=== PATIENT | male | born 1950 | race Hispanic/Latino ===

== ENCOUNTER 2018-08-08 07:27 | Inpatient (IN) | payer OTHER | END 2018-08-12 15:37 | LOC: DAHIP 07:27 → 4BH 14:36 → 4AH 17:34 | PROC: 0SRD0JZ Replacement of Left Knee Joint with Synthetic Substitute, Open Approach (ICD-10-PCS; principal; 2018-08-08 11:25) | DX: M17.12 Unilateral primary osteoarthritis, left knee (principal) ==

== ENCOUNTER → 2020-02-20 | Outpatient (CLI) | payer OTHER ==
[~2020-02-20] MED LIST: ASCO500T10 PO; CICL34.6 TP; CICL34.62 TP; FERR324T PO; GABA-531 PO; GLIP5TAB11 PO; LISI-617 PO; METF-446 PO; OMEP20CA12 PO; RANI150T7 PO; SIMV-43 PO; VENL-53 PO
--- NOTE | 2020-02-20 10:30 | NUR ---
MBSS COMPLETED. -S/S OF ASPIRATION. RECOMMEND REGULAR TEXTURE, THIN LIQUIDS; PILLS WITH LIQUIDS Addendum: 02/20/20 at 1646 by LAMAR MIDDLETON, [facility] Amended: Links added.
== END | disposition home or self-care (01) ==
LOC: RAH 10:29
PROVIDERS: ATTEND Family Medicine
DX: R13.10 Dysphagia, unspecified (principal)
CPT/HCPCS: 74230; 92611

== ENCOUNTER 2023-03-19 13:24 | Emergency (ER) | payer OTHER ==
[~2023-03-19] VITALS: Ht 177.8 cm; Wt 83.9 kg
[~2023-03-19 13:24] MED LIST changes: -GLIP5TAB11 PO; +GLIP5TAB15 PO; -LISI-617 PO; +LISI5TAB21 PO
[2023-03-19] MEDS ORDERED: METOCLOPRAMIDE 10 MG/2 ML VIAL IVP ONE (15:00)
[2023-03-19] MEDS ORDERED: MORPHINE 4 MG SYG IVP ONE (15:00)
[2023-03-19] MEDS ORDERED: LACTATED RINGERS 1000ML 1,000 ML IV ONE (15:00)
[2023-03-19 15:27] LABS: BASOPHILS # (AUTO) 0.01 K/uL (0.00-0.20); BASOPHILS % (AUTO) 0.2 % (0.0-5.0); HEMATOCRIT 41.4 % (42-54); IMMATURE GRANULOCYTE ABSOLUTE 0.02 K/uL (0-1); LYMPHOCYTES # (AUTO) 0.9 K/uL (1.0-4.8); LYMPHOCYTES % (AUTO) 16.9 % (21.0-51.0); MEAN CORPUSCULAR HEMOGLOBIN 30.7 pg (27.0-33.0); MEAN CORPUSCULAR HGB CONC 35.3 g/dL (32.0-36.0); MEAN CORPUSCULAR VOLUME 87.2 fL (79-99); MONOCYTES # (AUTO) 0.2 K/uL (0.1-1.0); MONOCYTES % (AUTO) 3.4 % (3.0-13.0); NEUTROPHILS # (AUTO) 4.2 K/uL (1.8-7.7); NEUTROPHILS % (AUTO) 79.1 % (40.0-77.0); PLATELET COUNT (AUTO) 187 K/uL (130-400); RED BLOOD CELL COUNT(AUTO) 4.75 MIL/uL (4.50-6.20); RED CELL DISTRIBUTION WIDTH 14.4 % (11.0-15.5); WHITE BLOOD COUNT (AUTO) 5.3 K/uL (4.8-10.8)
[2023-03-19 15:36] LABS: CREATININE 0.8 mg/dL (0.5-1.5); POTASSIUM 4.7 mmol/L (3.5-5.1)
[2023-03-19 15:40] LABS: ALBUMIN 3.7 g/dL (3.5-5.0); TOTAL PROTEIN, SERUM 6.5 g/dL (6.0-8.3)
[2023-03-19] MEDS ORDERED: IOHEXOL-350 75 ML VIAL IV ONE (15:58)
[2023-03-19 16:49] LABS: APPEARANCE,URINE CLEAR (CLEAR); BILIRUBIN,URINE NEGATIVE (NEGATIVE); COLOR,URINE LIGHT-YELLOW (YELLOW); GLUCOSE, URINE (UA) NEGATIVE (NEGATIVE); KETONES,URINE NEGATIVE (NEGATIVE); LEUKOCYTE ESTERASE ,URINE NEGATIVE Leu/uL (NEGATIVE); NITRATE,URINE NEGATIVE (NEGATIVE); OCCULT BLOOD,URINE NEGATIVE (NEGATIVE); PROTEIN,URINE NEGATIVE (NEGATIVE); UROBILINOGEN,URINE 0.2 mg/dL (0.2-1.0)
[2023-03-19 16:50] LABS: ADD UA MICROSCOPIC YES
[2023-03-19 16:52] LABS: RBC,URINE 0-1 /HPF (0-1); WBC,URINE 0-1 /HPF (0-1)
[2023-03-19] MEDS ORDERED: POLY17PO4 PO (17:08)
[2023-03-19 18:29] VITALS: BP 139/74; PULSE 72; RESP 16; O2SAT 99
== END 2023-03-19 18:43 | disposition home or self-care (01) ==
LOC: EDH 13:24
DX: K57.30 Diverticulosis of large intestine without perforation or abscess without bleeding (principal); K59.00 Constipation, unspecified; E11.9 Type 2 diabetes mellitus without complications; E78.00 Pure hypercholesterolemia, unspecified; I10 Essential (primary) hypertension; Z79.84 Long term (current) use of oral hypoglycemic drugs; Z79.899 Other long term (current) drug therapy
CPT/HCPCS: 99285; 74178; 96374; 71045; 96361; 96375; 82550; 84484; 80053; 83690; 85025; 81001; 36415; 93005; J7120; J2270; J2765; Q9967

== ENCOUNTER → 2023-03-22 | Outpatient (CLI) | payer OTHER ==
[~2023-03-22] MED LIST changes: +POLY17PO4 PO
== END | disposition home or self-care (01) ==
LOC: RAH 14:22
PROVIDERS: ATTEND Internal Medicine
DX: K59.04 Chronic idiopathic constipation (principal)
CPT/HCPCS: 74018

== ENCOUNTER 2024-01-18 17:18 | Observation (INO) | payer OTHER ==
[~2024-01-18] VITALS: Ht 175.3 cm; Wt 90.4 kg
[2024-01-18 18:23] LABS: BASOPHILS # (AUTO) 0.01 K/uL (0.00-0.20); BASOPHILS % (AUTO) 0.2 % (0.0-5.0); EOSINOPHILS # (AUTO) 0.01 K/uL (0.00-0.70); EOSINOPHILS % (AUTO) 0.2 % (0.0-8.0); HEMATOCRIT 35.8 % (42-54); IMMATURE GRANULOCYTE ABSOLUTE 0.04 K/uL (0-1); LYMPHOCYTES # (AUTO) 0.5 K/uL (1.0-4.8); LYMPHOCYTES % (AUTO) 8.7 % (21.0-51.0); MEAN CORPUSCULAR HEMOGLOBIN 34.5 pg (27.0-33.0); MEAN CORPUSCULAR HGB CONC 36.3 g/dL (32.0-36.0); MONOCYTES # (AUTO) 0.3 K/uL (0.1-1.0); MONOCYTES % (AUTO) 4.7 % (3.0-13.0); NEUTROPHILS # (AUTO) 5.3 K/uL (1.8-7.7); NEUTROPHILS % (AUTO) 85.6 % (40.0-77.0); PLATELET COUNT (AUTO) 176 K/uL (130-400); RED BLOOD CELL COUNT(AUTO) 3.77 MIL/uL (4.50-6.20); WHITE BLOOD COUNT (AUTO) 6.2 K/uL (4.8-10.8)
[2024-01-18] MEDS: 0.9%NACL 1000ML 1,000 ML IV ONE (18:33)
[2024-01-18 18:38] LABS: CREATININE 0.8 mg/dL (0.5-1.3); POTASSIUM 4.1 mmol/L (3.5-5.1)
[2024-01-18 18:43] LABS: ALBUMIN 3.6 g/dL (3.5-5.0); BILIRUBIN,TOTAL 0.8 mg/dL (0.2-1.0); TOTAL PROTEIN, SERUM 6.4 g/dL (6.0-8.3)
[2024-01-18 19:51] LABS: APPEARANCE,URINE CLEAR (CLEAR); BILIRUBIN,URINE NEGATIVE (NEGATIVE); COLOR,URINE LIGHT-YELLOW (YELLOW); GLUCOSE, URINE (UA) NEGATIVE (NEGATIVE); KETONES,URINE NEGATIVE (NEGATIVE); LEUKOCYTE ESTERASE ,URINE 25 Leu/uL (NEGATIVE); NITRATE,URINE NEGATIVE (NEGATIVE); OCCULT BLOOD,URINE NEGATIVE (NEGATIVE); PH,URINE 6.5 (5.0-8.0); PROTEIN,URINE NEGATIVE (NEGATIVE); UROBILINOGEN,URINE 0.2 mg/dL (0.2-1.0)
[2024-01-18 19:54] LABS: SODIUM,URINE RANDOM 30 mmol/l (40-220)
[2024-01-18 19:55] LABS: ADD UA MICROSCOPIC YES
[2024-01-18 19:57] LABS: RBC,URINE 0-1 /HPF (0-1)
[2024-01-18] MEDS ORDERED: PoTASSium chl 10% ELIXIR 20MEQ 20 MEQ/15 ML UDCUP PO PRN (23:30)
[2024-01-18] MEDS ORDERED: ondanSETRON 4MG INJ IV PRN (23:30)
[2024-01-18] MEDS ORDERED: DEXTROSE 50%-WATER 50 ML DISP.SYRIN IV PRN (23:30)
[2024-01-18] MEDS ORDERED: PoTASSium chloRIDE 20MEQ/100ML 100 ML IV PRN (23:30)
[2024-01-18] MEDS ORDERED: GLUCAGON 1MG KIT 1 MG ML IM PRN (23:30)
[2024-01-18] MEDS ORDERED: PoTASSium chloRIDE 20MEQ ER 20 MEQ ERTAB PO PRN (23:30)
[2024-01-18 23:48] VITALS: O2SAT 98
[2024-01-18] MEDS: 0.9%NACL 1000ML 1,000 ML IV SCH (23:57)
[2024-01-19 00:29] VITALS: BP 154/82; PULSE 56; RESP 18; TEMP 97.9
[2024-01-19] MEDS ORDERED: DALF10TA PO (00:33)
[2024-01-19] MEDS ORDERED: BISA-151 PO (00:33)
[2024-01-19] MEDS ORDERED: TEST60GE3 TD (00:33)
[2024-01-19] MEDS ORDERED: SIMV-43 PO (00:33)
[2024-01-19] MEDS ORDERED: TRAZ-187 PO (00:33)
[2024-01-19] MEDS ORDERED: OMEP20CA12 PO (00:33)
[2024-01-19] MEDS ORDERED: LISI20TA24 PO (00:33)
[2024-01-19] MEDS ORDERED: VITA-348 PO (00:33)
[2024-01-19] MEDS ORDERED: FAMO20TA8 PO (00:33)
[2024-01-19] MEDS ORDERED: VITAMIN B 12 PO (00:33)
[2024-01-19] MEDS ORDERED: AZAT100T2 PO (00:33)
[2024-01-19] MEDS ORDERED: LUBI24CA9 PO (00:33)
[2024-01-19] MEDS ORDERED: PRED10TA3 PO (00:33)
[2024-01-19] MEDS ORDERED: MULT-1203 PO (00:33)
[2024-01-19] MEDS ORDERED: LACT10SO75 PO (00:33)
[2024-01-19] MEDS ORDERED: [UNRECOGNIZED DRUG - CODE] PO (00:33)
[2024-01-19] MEDS ORDERED: DULO30CA52 PO (00:33)
[2024-01-19] MEDS ORDERED: ASCO500T19 PO (00:33)
[2024-01-19] MEDS ORDERED: MECL-302 PO (00:33)
[2024-01-19 03:37] VITALS: BP 145/80; PULSE 97; RESP 18; TEMP 97.7
[2024-01-19 05:54] LABS: BASOPHILS # (AUTO) 0.01 K/uL (0.00-0.20); BASOPHILS % (AUTO) 0.2 % (0.0-5.0); EOSINOPHILS # (AUTO) 0.04 K/uL (0.00-0.70); EOSINOPHILS % (AUTO) 0.7 % (0.0-8.0); HEMATOCRIT 34.9 % (42-54); IMMATURE GRANULOCYTE ABSOLUTE 0.04 K/uL (0-1); LYMPHOCYTES # (AUTO) 1.5 K/uL (1.0-4.8); MEAN CORPUSCULAR HEMOGLOBIN 34.8 pg (27.0-33.0); MEAN CORPUSCULAR HGB CONC 35.8 g/dL (32.0-36.0); MEAN CORPUSCULAR VOLUME 97.2 fL (79-99); MONOCYTES # (AUTO) 0.5 K/uL (0.1-1.0); MONOCYTES % (AUTO) 9.3 % (3.0-13.0); NEUTROPHILS # (AUTO) 3.3 K/uL (1.8-7.7); NEUTROPHILS % (AUTO) 62.1 % (40.0-77.0); PLATELET COUNT (AUTO) 150 K/uL (130-400); RED BLOOD CELL COUNT(AUTO) 3.59 MIL/uL (4.50-6.20); RED CELL DISTRIBUTION WIDTH 13.2 % (11.0-15.5); WHITE BLOOD COUNT (AUTO) 5.4 K/uL (4.8-10.8)
[2024-01-19] MEDS: INSULIN humuLIN R 100 UNIT/ML 3ML SQ SCH (06:02)
[2024-01-19 06:16] LABS: HEMOGLOBIN A1C 6.5 % (4.0-6.0)
[2024-01-19 06:19] LABS: ALBUMIN 3.1 g/dL (3.5-5.0); BILIRUBIN,TOTAL 0.8 mg/dL (0.2-1.0); CREATININE 0.7 mg/dL (0.5-1.3); MAGNESIUM 1.7 mg/dL (1.80-2.40); POTASSIUM 4.1 mmol/L (3.5-5.1); THYROID STIMULATING HORMONE 1.7 uIU/mL (0.36-3.74); TOTAL PROTEIN, SERUM 5.6 g/dL (6.0-8.3)
[2024-01-19] MEDS: MAGNESIUM 2GM PREMIX 50ML 50 ML IV PRN (06:31)
[2024-01-19 07:34] VITALS: BP 140/72; PULSE 61; RESP 18; TEMP 97.9
[2024-01-19 08:59] LABS: CREATININE,URINE RANDOM 31.45 mg/dL (30-135)
[2024-01-19] MEDS: FAMOTIDINE 20MG TAB PO SCH (09:23)
[2024-01-19 10:02] LABS: AMPHET/METH SCREEN,URINE NEGATIVE (NEGATIVE); BARBITURATE SCREEN, URINE NEGATIVE (NEGATIVE); BENZODIAZEPINES SCREEN,URINE NEGATIVE (NEGATIVE); CANNABINOID SCREEN,URINE NEGATIVE (NEGATIVE); COCAINE SCREEN,URINE NEGATIVE (NEGATIVE); OPIATE SCREEN,URINE NEGATIVE (NEGATIVE); PHENCYCLIDINE SCREEN,URINE NEGATIVE (NEGATIVE)
[2024-01-19 11:09] VITALS: BP 128/76; PULSE 72; RESP 18; TEMP 98.5
[2024-01-19 16:01] VITALS: BP 132/74; PULSE 60; RESP 18; TEMP 97.8
== END 2024-01-19 18:06 | disposition home or self-care (01) ==
LOC: EDH 17:18 → EDHIP 23:01 → INTOOBSV 23:01 → 3AH 01-19 00:02
PROVIDERS: ADMIT Hospitalist; ATTEND Hospitalist
DX: E87.1 Hypo-osmolality and hyponatremia (principal); G25.3 Myoclonus; D64.9 Anemia, unspecified; R63.1 Polydipsia; N19 Unspecified kidney failure; E78.5 Hyperlipidemia, unspecified; E11.9 Type 2 diabetes mellitus without complications; I10 Essential (primary) hypertension; E87.8 Other disorders of electrolyte and fluid balance, not elsewhere classified; M19.90 Unspecified osteoarthritis, unspecified site; R00.1 Bradycardia, unspecified; F32.9 Major depressive disorder, single episode, unspecified; Z96.652 Presence of left artificial knee joint; Z87.11 Personal history of peptic ulcer disease; Z79.899 Other long term (current) drug therapy
CPT/HCPCS: 36415; 80053; 80305; 81001; 82570; 82948; 83036; 83735; 83880; 83930; 83935; 84133; 84300; 84443; 85025; 93005; 96361; 96365; 96366; G0378; J3475; J7030